=== PATIENT | male | born 1965 | race Caucasian/White ===

== ENCOUNTER 2023-08-08 13:28 | Inpatient (IN) | payer OTHER ==
[2023-08-08 13:51] VITALS: BMI 35.4
[2023-08-08] MEDS ORDERED: ONDANSETRON *ODT* 4 MG TABLET SL PRN (14:48)
[2023-08-08] MEDS ORDERED: MAGNESIUM HYDROX 2400MG/30ML ORAL SUSPENSION 30 ML CUP PO PRN (14:48)
[2023-08-08] MEDS ORDERED: IBUPROFEN 400 MG TABLET (FP) PO PRN (14:48)
[2023-08-08] MEDS ORDERED: guaiFENesin 600 MG TABLET.ER (FP) PO PRN (14:48)
[2023-08-08] MEDS ORDERED: POLYETHYLENE GLYCOL (HEALTHYLAX) 3350 17 GM PACKET PO PRN (14:48)
[2023-08-08] MEDS ORDERED: NALOXONE HCL 0.4 MG/ML VIAL IM PRN (14:48)
[2023-08-08] MEDS ORDERED: ACETAMINOPHEN 325 MG TABLET (FP) PO PRN (14:48)
[2023-08-08] MEDS ORDERED: BENZONATATE 200 MG CAPSULE PO PRN (14:48)
[2023-08-08] MEDS ORDERED: LOPERAMIDE HCL 2 MG CAPSULE PO PRN (14:48)
[2023-08-08] MEDS ORDERED: METHOCARBAMOL 500 MG TABLET PO PRN (14:48)
[2023-08-08] MEDS ORDERED: BISMUTH SUBSALICYLATE 524 MG/30 ML PO PRN (14:48)
[2023-08-08] MEDS ORDERED: NALOXONE HCL (KLOXXADO) 8 MG SPRAY NS PRN (14:48)
[2023-08-08] MEDS ORDERED: MAG HYDROX/AL HYDROX/SIMETH 30 ML UNIT-DOSE CUP PO PRN (14:48)
[2023-08-08] MEDS ORDERED: DICYCLOMINE HCL 10 MG CAPSULE PO PRN (14:48)
[2023-08-08] MEDS ORDERED: BENZOCAINE/MENTHOL (CHLORASEPTIC ) LOZENGE MM PRN (14:48)
[2023-08-08] MEDS ORDERED: IBUPROFEN 600 MG TABLET (FP) PO PRN (14:48)
[2023-08-08] MEDS ORDERED: NICOTINE 14 MG/24 HOURS TOPICAL PATCH TD ONE (15:30)
[2023-08-08] MEDS ORDERED: PRENATAL VITAMINS W/ FOLIC ACID TABLET (FP) PO ONE (15:30)
[2023-08-08] MEDS ORDERED: TRIMETHOBENZAMIDE HCL 200MG/2ML INJ IM ONE ×2 (15:34→15:50)
[2023-08-08] MEDS: NICOTINE 14 MG/24 HOURS TOPICAL PATCH TD SCH (15:59)
[2023-08-08] MEDS: PRENATAL VITAMINS W/ FOLIC ACID TABLET (FP) PO SCH (16:25)
[2023-08-08] MEDS: CYCLOBENZAPRINE HCL 10 MG TABLET (FP) PO SCH ×2 (16:25→22:22)
[2023-08-08] MEDS ORDERED: diazePAM 5 MG TABLET PO SCH (17:00)
[2023-08-08] MEDS: MELATONIN 5 MG TABLETS PO SCH (22:20)
[2023-08-08] MEDS: THIAMINE HCL 100 MG TABLET (FP) PO SCH (22:22)
[2023-08-08] MEDS: diazePAM 5 MG TABLET PO ONE (22:22)
[2023-08-08] MEDS: hydrOXYzine PAMOATE 25 MG CAPSULE (FP) PO PRN (22:23)
[2023-08-08] MEDS: diazePAM 5 MG TABLET PO SCH (22:29)
[2023-08-09] MEDS: diazePAM 5 MG TABLET PO SCH ×4 (05:50→22:47)
[2023-08-09] MEDS: CYCLOBENZAPRINE HCL 10 MG TABLET (FP) PO SCH ×3 (05:51→22:44)
[2023-08-09] MEDS: PRENATAL VITAMINS W/ FOLIC ACID TABLET (FP) PO SCH (10:26)
[2023-08-09] MEDS: NICOTINE 14 MG/24 HOURS TOPICAL PATCH TD SCH (10:27)
[2023-08-09] MEDS ORDERED: methaDONE HCL 10 MG TABLET PO SCH (10:45)
[2023-08-09 11:01] LABS: HEMATOCRIT 42.6 % (35.4-49); HEMOGLOBIN 14.7 GM/dL (11.7-16.9); MCH 29.2 pg (25.7-33.7); MCHC 34.5 g/dl (32.0-35.9); MEAN CELL VOLUME 84.7 fl (80-96); MEAN PLT VOLUME 8.6 fl (7.5-11.1); PLATELET COUNT 240 10^3/uL (134-434); RBC 5.03 M/mm3 (4.00-5.60); WHITE BLOOD COUNT 7.7 K/mm3 (4.0-10.0)
[2023-08-09 11:14] LABS: POTASSIUM 4.1 mmol/L (3.5-5.1)
[2023-08-09 11:15] LABS: CALCIUM 8.4 mg/dL (8.5-10.1)
[2023-08-09 11:17] LABS: ALBUMIN 3.3 g/dl (3.4-5.0); BLOOD UREA NITROGEN 13.5 mg/dL (7-18)
[2023-08-09 11:20] LABS: TOT PROT 7.7 g/dl (6.4-8.2)
[2023-08-09 11:24] LABS: BILIRUBIN,TOTAL 0.3 mg/dL (0.2-1)
[2023-08-09] MEDS: diazePAM 5 MG TABLET PO PRN (13:41)
[2023-08-09] MEDS: metFORMIN HCL 500 MG TABLET (FP) PO SCH (17:06)
[2023-08-09] MEDS: MELATONIN 5 MG TABLETS PO SCH (22:44)
[2023-08-09] MEDS: THIAMINE HCL 100 MG TABLET (FP) PO SCH (22:44)
[2023-08-10] MEDS: diazePAM 5 MG TABLET PO SCH ×3 (05:29→21:59)
[2023-08-10] MEDS: CYCLOBENZAPRINE HCL 10 MG TABLET (FP) PO SCH ×3 (05:30→21:57)
[2023-08-10] MEDS: metFORMIN HCL 500 MG TABLET (FP) PO SCH ×2 (06:21→17:25)
[2023-08-10] MEDS: PRENATAL VITAMINS W/ FOLIC ACID TABLET (FP) PO SCH (10:42)
[2023-08-10] MEDS: diazePAM 5 MG TABLET PO PRN ×2 (10:42→17:34)
[2023-08-10] MEDS: NICOTINE 14 MG/24 HOURS TOPICAL PATCH TD SCH (10:42)
[2023-08-10] MEDS: hydrOXYzine PAMOATE 25 MG CAPSULE (FP) PO PRN (21:57)
[2023-08-10] MEDS: THIAMINE HCL 100 MG TABLET (FP) PO SCH (21:57)
[2023-08-10] MEDS: MELATONIN 5 MG TABLETS PO SCH (21:57)
[2023-08-11] MEDS: CYCLOBENZAPRINE HCL 10 MG TABLET (FP) PO SCH ×3 (05:55→21:35)
[2023-08-11] MEDS: diazePAM 5 MG TABLET PO SCH ×2 (05:56→17:36)
[2023-08-11] MEDS: metFORMIN HCL 500 MG TABLET (FP) PO SCH ×2 (06:18→17:00)
[2023-08-11] MEDS: NICOTINE 14 MG/24 HOURS TOPICAL PATCH TD SCH (10:20)
[2023-08-11] MEDS: PRENATAL VITAMINS W/ FOLIC ACID TABLET (FP) PO SCH (10:22)
[2023-08-11] MEDS: FAMOTIDINE 20 MG TABLET PO SCH (13:29)
[2023-08-11] MEDS: hydrOXYzine PAMOATE 25 MG CAPSULE (FP) PO PRN (21:35)
[2023-08-11] MEDS: MELATONIN 5 MG TABLETS PO SCH (21:35)
[2023-08-11] MEDS: THIAMINE HCL 100 MG TABLET (FP) PO SCH (21:38)
[2023-08-12] MEDS: diazePAM 5 MG TABLET PO ONE (05:46)
[2023-08-12] MEDS: CYCLOBENZAPRINE HCL 10 MG TABLET (FP) PO SCH (05:51)
[2023-08-12] MEDS: metFORMIN HCL 500 MG TABLET (FP) PO SCH (06:01)
[2023-08-12 06:26] VITALS: RESP 18; TEMP 97.6
[2023-08-12 09:16] VITALS: BP 137/89; PULSE 120
[2023-08-12] MEDS: NICOTINE 14 MG/24 HOURS TOPICAL PATCH TD SCH (10:36)
[2023-08-12] MEDS: PRENATAL VITAMINS W/ FOLIC ACID TABLET (FP) PO SCH (10:36)
[2023-08-12] MEDS: FAMOTIDINE 20 MG TABLET PO SCH (10:36)
== END 2023-08-12 09:53 | disposition home or self-care (01) | DRG 897 ==
LOC: YASAS 13:28 → Y3N 15:03
PROVIDERS: ADMIT Allergy & Immunology; ATTEND Surgery
PROC: HZ2ZZZZ Detoxification Services for Substance Abuse Treatment (ICD-10-PCS; principal; 2023-08-08)
DX: F11.23 Opioid dependence with withdrawal (principal); F13.20 Sedative, hypnotic or anxiolytic dependence, uncomplicated; F10.230 Alcohol dependence with withdrawal, uncomplicated; F17.210 Nicotine dependence, cigarettes, uncomplicated; E11.9 Type 2 diabetes mellitus without complications; Z79.84 Long term (current) use of oral hypoglycemic drugs; E66.9 Obesity, unspecified; Z68.35 Body mass index [BMI] 35.0-35.9, adult; Z88.0 Allergy status to penicillin
CPT/HCPCS: 36415; 80053; 82962; 85027; 86780; 87635; 87811; 93005; 93010